=== PATIENT | female | born 1960 | race Caucasian/White ===

== ENCOUNTER 2017-11-09 09:09 | Day surgery (SDC) | payer OTHER ==
[2017-11-09] MEDS ORDERED: BUPIVACAINE 0.5% 30 ML SDV ONE (09:41)
--- NOTE | 2017-11-09 09:57 | PDHPUP ---
History & Physical Update H&P update statement: This history and physical update is based on an assessment of the patient which was completed after admission or registration (within 24 hours), but prior to the surgery/procedure. H&P update: no change in patient's condition since H&P completed
--- NOTE | 2017-11-09 10:09 | POSTOPPROG ---
Post Op Note Date of Operation: 11/09/17 Surgeon: Alejo Samriento Primary Operator: none Anesthesiologist: local only Anesthesia: Local (Specify) (local infiltration) Pre-op Diagnosis: right long trigger finger Post-op Diagnosis: same Indication: pain Procedure: right long trigger finger release Findings: tight A1 roseline Inf/Abcess present in the surg proc area at time of surgery?: No Depth: Deep Incisional (Fascial) EBL: Minimal Total fluids administered: none
[2017-11-09 11:03] VITALS: BP 120/69
--- NOTE | 2017-11-09 11:35 | GOP ---
[f rep st] OPERATIVE REPORT DATE OF OPERATION: 11/09/2017 SURGEON: Alejo Sarmiento MD PREOPERATIVE DIAGNOSIS: Right long trigger finger. POSTOPERATIVE DIAGNOSIS: Long trigger finger with very significant inflammatory and scarred tenosynovium on the sublimis tendon. PROPOSED OPERATION/PROCEDURE PERFORMED: Trigger finger release right long finger, with tenosynovectomy. FINDINGS: INDICATIONS: This patient had such severe trigger finger that there was not only a large indentation in the sublimis tendon at the level of the A1 roseline but also significant scarred, inflammatory tenosynovium extending well above the A1 roseline. She had a lot of tenderness, locking, and pain. It was felt at this point that surgical treatment was a good option for her. DESCRIPTION OF PROCEDURE: Under local infiltration with 0.5% plain Marcaine, the operative area achieved adequate anesthesia. A total of 7 cc of Marcaine was used at the operative area. The right hand was prepped and draped in the usual fashion, and the forearm tourniquet applied at 250 mmHg. An oblique incision was made over the palmar aspect of the right long finger at the metacarpal head area. Skin and subcutaneous tissue were reflected, and the A1 roseline was exposed. There was marked inflammatory tissue extending above the A1 roseline. A1 roseline was released. The proximal extension of the A1 roseline was released. A portion of the A1 roseline was excised, and inflammatory and scarred tenosynovium was removed up to about the mid-palm area and down to the A2 roseline area. There was a very significant indentation in the sublimis tendon at the distal end of the A1 roseline. Once the tenosynovectomy had been completed, the tendons glided nicely, and full range of motion of the right long finger was restored. The tendons glided smoothly without stuttering. The wound was irrigated with body-temperature saline, and then skin closed with horizontal mattress sutures of 4-0 PDS. A bulky, soft, pressure dressing was applied and held in place with Coban tape. Tourniquet deflation resulted in immediate pinking of the digits. She was brought to the recovery area where detailed postoperative instructions were given prior to discharge. POSTOPERATIVE INSTRUCTIONS: A prescription for tramadol and Keflex was provided. Followup arrangements in the office for about a week postop for dressing and suture removal and remobilization exercises. She can use her hand for gentle activity during the week postop, 2-pound limit. /[id number]/MODL MTDD
== END 2017-11-09 11:20 | disposition home or self-care (01) ==
LOC: FSGY 09:09
PROVIDERS: ATTEND Specialist
PROC: 0LN70ZZ Release Right Hand Tendon, Open Approach (ICD-10-PCS; principal; 2017-11-09 09:45)
DX: M65.331 Trigger finger, right middle finger (principal)